=== PATIENT | female | born 1960 | race African-American/Black ===

== ENCOUNTER → 2018-10-16 | Outpatient (CLI) | payer OTHER ==
--- NOTE | 2018-10-16 14:28 | RAD ---
PA and lateral chest x-ray compared to similar study dated January 17, 2010 for chest wall pain status post mastectomy. FINDINGS: The lungs are clear. The cardiomediastinum is grossly unremarkable. Postsurgical changes of mastectomy are seen. There are flowing anterior osteophytes in the mid thoracic spine. No suspicious osteoblastic or osteolytic bone lesions are evident. IMPRESSION: 1. No acute cardiopulmonary abnormality. Electronically signed by: Santana Barraza MD (10/16/2018 2:25 PM) [id number]
== END | disposition home or self-care (01) ==
LOC: RAD 08:51 → EDBD 08:51
PROVIDERS: ATTEND Surgery
DX: M25.78 Osteophyte, vertebrae (principal); Z90.13 Acquired absence of bilateral breasts and nipples
CPT/HCPCS: 71046

== ENCOUNTER → 2018-11-14 | Outpatient (CLI) | payer MEDICARE, OTHER ==
--- NOTE | 2018-11-14 10:18 | RAD ---
CT of the chest without contrast 11/14/2018 INDICATION: Abnormal sternal mass. COMPARISON STUDY: Chest radiograph October 16, 2018 TECHNIQUE: Multidetector CT imaging of the chest was performed without contrast. FINDINGS: Predominantly sclerotic lesion is seen throughout the sternum and manubrium. The appearance is concerning for metastatic disease. Multifocal mild areas of surrounding abnormal soft tissue density are seen. A masslike nodule is seen anterior to the sternum just inferior to the marker (axial image 43. Findings are concerning for metastatic disease given patient history of breast cancer. Prior right mastectomy noted. Abnormal fullness is seen in the lateral left breast. Recommend correlation with recent mammography. If not available, mammography and possibly ultrasound evaluation is recommended. There are multiple small nodular opacities noted along the major fissure on the right. Largest measures 6 mm in diameter. Motion artifact somewhat limits evaluation. These are not seen on prior study. Heart size is normal. A small soft tissue density is seen likely extending from the manubrium into the anterior mediastinum. Calcified mediastinal lymph nodes are noted. No pathologically enlarged mediastinal adenopathy is detected on limited noncontrast evaluation. Granulomatous disease involving the spleen noted. No acute normalities of the upper abdomen are detected. IMPRESSION: 1. Likely sclerotic metastasis within the sternum and manubrium with surrounding soft tissue mass, also likely metastasis. Consider PET/CT to evaluate extent of disease, and biopsy as clinically indicated. 2. Asymmetric fullness in the lateral left breast. CT is limited for evaluation. Consider mammography if not recently performed. 3. Multiple small multiple small noncalcified nodules along the major fissure on the right measuring up to 6 mm in diameter. The appearance is nonspecific. Metastasis cannot be excluded given other findings. CT surveillance recommended. CT DOSING PQRS STATEMENT: One or more of the following individualized dose reduction techniques were utilized for this examination: 1. Automated exposure control 2. Adjustment of the mA and/or kV according to patient size 3. Use of iterative reconstruction technique Electronically signed by: Cruz Agustin MD (11/14/2018 10:13 AM) [id number]
== END | disposition home or self-care (01) ==
LOC: CT 07:57
PROVIDERS: ATTEND Surgery
DX: R59.0 Localized enlarged lymph nodes (principal); D71 Functional disorders of polymorphonuclear neutrophils; Z85.3 Personal history of malignant neoplasm of breast; Z90.11 Acquired absence of right breast and nipple
CPT/HCPCS: 36415; 71250

== ENCOUNTER → 2019-08-22 | Outpatient (CLI) | payer MEDICARE, MEDICAID ==
[2019-08-22 17:29] LABS: BASO # 0.1 x10^3/uL (0.0-0.2); BASO % 1 % (0-3); EOS % 0 % (0-3); HEMATOCRIT 30.3 % (36.0-47.0); LYMPH # 1.3 x10^3/uL (1.0-4.8); LYMPH % 17 % (24-48); MEAN CORPUSCULAR HEMOGLOBIN 27 pg (25-35); MEAN CORPUSCULAR HGB CONC 33 g/dL (31-37); MEAN CORPUSCULAR VOLUME 83 fL (79-100); MONO # 0.4 x10^3/uL (0.0-1.1); MONO % 5 % (0-9); NEUT # 5.7 x10^3uL (1.8-7.7); NEUT % 77 % (31-73); PLATELET COUNT 255 x10^3/uL (140-400); RED BLOOD COUNT 3.66 x10^6/uL (3.50-5.40); RED CELL DISTRIBUTION WIDTH 18.7 % (11.5-14.5); WHITE BLOOD COUNT 7.5 x10^3/uL (4.0-11.0)
[2019-08-22 17:43] LABS: ALBUMIN 3.4 g/dL (3.4-5.0); ALBUMIN/GLOBULIN RATIO 0.8 (1.0-1.7); CREATININE 1.3 mg/dL (0.6-1.0); GFR 50.9; POTASSIUM 4.3 mmol/L (3.5-5.1); TOTAL BILIRUBIN 0.6 mg/dL (0.2-1.0); TOTAL PROTEIN 7.8 g/dL (6.4-8.2)
== END | disposition home or self-care (01) ==
LOC: LAB 17:03
PROVIDERS: ATTEND Internal Medicine Hematology & Oncology
DX: Z00.6 Encounter for examination for normal comparison and control in clinical research program (principal); C50.911 Malignant neoplasm of unspecified site of right female breast; Z17.0 Estrogen receptor positive status [ER+]
CPT/HCPCS: 36415; 80053; 85025

== ENCOUNTER → 2019-11-10 | Outpatient (CLI) | payer MEDICARE, MEDICAID ==
[2019-11-10 07:53] LABS: BASO # 0.1 x10^3/uL (0.0-0.2); BASO % 1 % (0-3); EOS # 0.1 x10^3/uL (0.0-0.7); EOS % 1 % (0-3); HEMATOCRIT 27.5 % (36.0-47.0); LYMPH # 2.1 x10^3/uL (1.0-4.8); LYMPH % 47 % (24-48); MEAN CORPUSCULAR HEMOGLOBIN 28 pg (25-35); MEAN CORPUSCULAR HGB CONC 33 g/dL (31-37); MEAN CORPUSCULAR VOLUME 86 fL (79-100); MONO # 0.2 x10^3/uL (0.0-1.1); MONO % 5 % (0-9); NEUT % 46 % (31-73); PLATELET COUNT 327 x10^3/uL (140-400); RED BLOOD COUNT 3.21 x10^6/uL (3.50-5.40); RED CELL DISTRIBUTION WIDTH 17.9 % (11.5-14.5); WHITE BLOOD COUNT 4.5 x10^3/uL (4.0-11.0)
[2019-11-10 08:04] LABS: ALBUMIN 3.2 g/dL (3.4-5.0); ALBUMIN/GLOBULIN RATIO 0.7 (1.0-1.7); CALCIUM 7.5 mg/dL (8.5-10.1); CREATININE 1.1 mg/dL (0.6-1.0); GFR 61.5; POTASSIUM 4.5 mmol/L (3.5-5.1); TOTAL BILIRUBIN 0.4 mg/dL (0.2-1.0); TOTAL PROTEIN 7.6 g/dL (6.4-8.2)
== END | disposition home or self-care (01) ==
LOC: LAB 07:34
PROVIDERS: ATTEND Internal Medicine Hematology & Oncology
DX: C50.911 Malignant neoplasm of unspecified site of right female breast (principal); Z17.0 Estrogen receptor positive status [ER+]
CPT/HCPCS: 36415; 80053; 85025

== ENCOUNTER → 2019-11-24 | Outpatient (CLI) | payer MEDICARE, MEDICAID ==
[2019-11-24 08:16] LABS: ALBUMIN 2.9 g/dL (3.4-5.0); ALBUMIN/GLOBULIN RATIO 0.6 (1.0-1.7); CALCIUM 8.5 mg/dL (8.5-10.1); GFR 68.7; POTASSIUM 4.5 mmol/L (3.5-5.1); TOTAL BILIRUBIN 0.3 mg/dL (0.2-1.0); TOTAL PROTEIN 7.5 g/dL (6.4-8.2)
[2019-11-24 08:18] LABS: BASO # 0.1 x10^3/uL (0.0-0.2); BASO % 1 % (0-3); EOS # 0.1 x10^3/uL (0.0-0.7); EOS % 1 % (0-3); HEMOGLOBIN 8.7 g/dL (12.0-15.5); LYMPH # 2.2 x10^3/uL (1.0-4.8); LYMPH % 34 % (24-48); MEAN CORPUSCULAR HEMOGLOBIN 28 pg (25-35); MEAN CORPUSCULAR HGB CONC 32 g/dL (31-37); MEAN CORPUSCULAR VOLUME 87 fL (79-100); MONO % 15 % (0-9); NEUT # 3.2 x10^3uL (1.8-7.7); NEUT % 49 % (31-73); PLATELET COUNT 397 x10^3/uL (140-400); RED CELL DISTRIBUTION WIDTH 18.1 % (11.5-14.5); WHITE BLOOD COUNT 6.4 x10^3/uL (4.0-11.0)
== END | disposition home or self-care (01) ==
LOC: LAB 07:40
PROVIDERS: ATTEND Internal Medicine Hematology & Oncology
DX: C50.911 Malignant neoplasm of unspecified site of right female breast (principal); Z17.0 Estrogen receptor positive status [ER+]
CPT/HCPCS: 36415; 80053; 85025

== ENCOUNTER → 2019-12-01 | Outpatient (CLI) | payer MEDICARE, MEDICAID ==
[2019-12-01 07:53] LABS: BASO # 0.1 x10^3/uL (0.0-0.2); BASO % 1 % (0-3); EOS # 0.1 x10^3/uL (0.0-0.7); EOS % 1 % (0-3); HEMATOCRIT 25.4 % (36.0-47.0); HEMOGLOBIN 8.3 g/dL (12.0-15.5); LYMPH # 2.1 x10^3/uL (1.0-4.8); LYMPH % 35 % (24-48); MEAN CORPUSCULAR HEMOGLOBIN 28 pg (25-35); MEAN CORPUSCULAR HGB CONC 33 g/dL (31-37); MEAN CORPUSCULAR VOLUME 85 fL (79-100); MONO # 0.3 x10^3/uL (0.0-1.1); MONO % 6 % (0-9); NEUT # 3.4 x10^3uL (1.8-7.7); NEUT % 57 % (31-73); PLATELET COUNT 359 x10^3/uL (140-400); RED BLOOD COUNT 2.99 x10^6/uL (3.50-5.40); RED CELL DISTRIBUTION WIDTH 17.7 % (11.5-14.5)
[2019-12-01 08:03] LABS: ALBUMIN 2.9 g/dL (3.4-5.0); ALBUMIN/GLOBULIN RATIO 0.6 (1.0-1.7); CALCIUM 8.2 mg/dL (8.5-10.1); CREATININE 0.8 mg/dL (0.6-1.0); GFR 88.8; TOTAL BILIRUBIN 0.3 mg/dL (0.2-1.0); TOTAL PROTEIN 7.5 g/dL (6.4-8.2)
== END | disposition home or self-care (01) ==
LOC: LAB 07:29
PROVIDERS: ATTEND Internal Medicine Hematology & Oncology
DX: C79.51 Secondary malignant neoplasm of bone (principal); C50.911 Malignant neoplasm of unspecified site of right female breast; Z17.0 Estrogen receptor positive status [ER+]
CPT/HCPCS: 36415; 80053; 85025

== ENCOUNTER → 2019-12-22 | Outpatient (CLI) | payer MEDICARE, MEDICAID ==
[2019-12-22 08:11] LABS: ALBUMIN 2.8 g/dL (3.4-5.0); ALBUMIN/GLOBULIN RATIO 0.7 (1.0-1.7); BASO % 1 % (0-3); CALCIUM 7.9 mg/dL (8.5-10.1); EOS # 0.1 x10^3/uL (0.0-0.7); EOS % 1 % (0-3); GFR 68.7; HEMATOCRIT 25.8 % (36.0-47.0); HEMOGLOBIN 8.2 g/dL (12.0-15.5); LYMPH # 1.9 x10^3/uL (1.0-4.8); LYMPH % 35 % (24-48); MEAN CORPUSCULAR HEMOGLOBIN 27 pg (25-35); MEAN CORPUSCULAR HGB CONC 32 g/dL (31-37); MEAN CORPUSCULAR VOLUME 87 fL (79-100); MONO # 0.9 x10^3/uL (0.0-1.1); MONO % 17 % (0-9); NEUT # 2.5 x10^3uL (1.8-7.7); NEUT % 46 % (31-73); PLATELET COUNT 348 x10^3/uL (140-400); POTASSIUM 4.5 mmol/L (3.5-5.1); RED BLOOD COUNT 2.99 x10^6/uL (3.50-5.40); RED CELL DISTRIBUTION WIDTH 18.5 % (11.5-14.5); TOTAL BILIRUBIN 0.3 mg/dL (0.2-1.0); TOTAL PROTEIN 7.1 g/dL (6.4-8.2); WHITE BLOOD COUNT 5.4 x10^3/uL (4.0-11.0)
== END | disposition home or self-care (01) ==
LOC: LAB 07:41
PROVIDERS: ATTEND Internal Medicine Hematology & Oncology
DX: C79.51 Secondary malignant neoplasm of bone (principal); C50.911 Malignant neoplasm of unspecified site of right female breast; Z17.0 Estrogen receptor positive status [ER+]
CPT/HCPCS: 36415; 80053; 85025

== ENCOUNTER → 2019-12-24 | Outpatient (CLI) | payer MEDICARE, MEDICAID ==
[~2019-12-24] MED LIST: IOHEXOL 350 MG/ML 100 ML VIAL. IV ONE
--- NOTE | 2019-12-24 10:13 | RAD ---
Bilateral lower extremity venous doppler ultrasound History: Bilateral edema and swelling, history of breast cancer and chemotherapy Findings: Multiple grayscale, color, and duplex spectral analysis sonographic images were acquired of the bilateral lower extremity veins to evaluate for the presence of DVT. There is normal phasicity. Normal compression, color-flow, and augmentation is demonstrated from the bilateral common femoral to the popliteal veins. There is normal color flow of the proximal greater saphenous and profunda femoris veins. There is normal color flow of segments of the calf veins. There is edema of the soft tissues in the calves. Impression: 1. There is no evidence of deep venous thrombosis from the bilateral common femoral to the popliteal veins. Electronically signed by: Renny Post MD (12/24/2019 10:10 AM) [id number]
--- NOTE | 2019-12-24 11:18 | RAD ---
EXAM: CT Chest angiogram with and without IV contrast INDICATION: Malignant neoplasm of the right breast TECHNIQUE: Multi-detector row CT images were acquired from the thoracic inlet through the upper abdomen with and without the use of IV contrast. Post contrast images were acquired in the pulmonary angiographic phase of enhancement. Sagittal and coronal images were acquired from the transaxial data. All CT scans performed at this facility utilize dose optimization techniques as appropriate to the exam, including the following: Automated exposure control and adjustment of the mA and/or KV according to patient size (this includes techniques or standardized protocols for targeted exams where dose is indication/reason for exam). Maximum intensity projection reformats were reviewed. IV CONTRAST: Administered COMPARISON: Noncontrast chest CT of 11/14/2018. FINDINGS: CARDIOVASCULAR: Precontrast images show no evidence of an intramural hematoma in the thoracic aorta. Left jugular approach chest port with tip in the distal SVC passes through a stenotic innominate vein with intraluminal linear filling defects compatible with synechiae or webs. There is retrograde flow of contrast through various smaller adjoining veins, including the left superior intercostal vein. Opacification of the pulmonary arteries is however satisfactory and shows no evidence of a pulmonary embolus. The main pulmonary artery/pulmonary trunk is slightly larger than the ascending thoracic aorta at 3.2 cm, compared with 2.7 cm. Bovine arch anatomy is present. Widely patent thoracic aorta and major branch vessels with no aneurysm. Normal heart size. Scattered coronary calcifications. No pericardial effusion. MEDIASTINUM & DEBBIE: Calcified right lower paratracheal lymph node. No mediastinal or hilar adenopathy otherwise identified. The thyroid, central airway and esophagus are unremarkable. LUNGS: Lungs show rounded atelectasis in the right lung affecting the lower lobe to the greatest extent. In addition, there is diffuse interstitial prominence with slight thickening of the interlobular septa best appreciated in the left lung. No dominant mass.. PLEURAL SPACE: No pneumothorax. A moderate-sized right pleural effusion is present OSSEOUS & SOFT TISSUE: Diffuse osteoblastic lesions are present in the sternum, ribs, spine and bilateral visualized shoulder girdles including the humeral heads. Right mastectomy. No axillary adenopathy. ABDOMEN: Visualized upper abdomen shows splenic calcifications. . 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 Diffuse interlobular thickening in the lungs, best appreciated in the left lung could represent pulmonary vascular congestion but lymphangitic carcinomatosis can appear similar. Electronically signed by: Michelle Abraham MD (12/24/2019 11:15 AM) [facility]
== END | disposition home or self-care (01) ==
LOC: CT 08:21
PROVIDERS: ATTEND Internal Medicine Hematology & Oncology
DX: C79.51 Secondary malignant neoplasm of bone (principal); I25.10 Atherosclerotic heart disease of native coronary artery without angina pectoris; C50.911 Malignant neoplasm of unspecified site of right female breast; J92.9 Pleural plaque without asbestos; J90 Pleural effusion, not elsewhere classified; M89.9 Disorder of bone, unspecified; J98.11 Atelectasis; Q25.49 Other congenital malformations of aorta; H21.502 Unspecified adhesions of iris, left eye; R60.0 Localized edema
CPT/HCPCS: 71275; 93970; Q9967

== ENCOUNTER → 2019-12-29 | Outpatient (CLI) | payer MEDICARE, MEDICAID ==
[2019-12-29 08:17] LABS: BASO # 0.1 x10^3/uL (0.0-0.2); BASO % 1 % (0-3); EOS # 0.1 x10^3/uL (0.0-0.7); EOS % 2 % (0-3); HEMATOCRIT 23.9 % (36.0-47.0); HEMOGLOBIN 7.7 g/dL (12.0-15.5); LYMPH # 1.8 x10^3/uL (1.0-4.8); LYMPH % 31 % (24-48); MEAN CORPUSCULAR HEMOGLOBIN 27 pg (25-35); MEAN CORPUSCULAR HGB CONC 32 g/dL (31-37); MEAN CORPUSCULAR VOLUME 84 fL (79-100); MONO # 0.3 x10^3/uL (0.0-1.1); MONO % 5 % (0-9); NEUT # 3.6 x10^3uL (1.8-7.7); NEUT % 62 % (31-73); PLATELET COUNT 295 x10^3/uL (140-400); RED BLOOD COUNT 2.84 x10^6/uL (3.50-5.40); RED CELL DISTRIBUTION WIDTH 18.1 % (11.5-14.5); WHITE BLOOD COUNT 5.8 x10^3/uL (4.0-11.0)
[2019-12-29 08:27] LABS: ALBUMIN 2.9 g/dL (3.4-5.0); ALBUMIN/GLOBULIN RATIO 0.7 (1.0-1.7); CALCIUM 8.5 mg/dL (8.5-10.1); CREATININE 1.2 mg/dL (0.6-1.0); GFR 55.6; TOTAL BILIRUBIN 0.4 mg/dL (0.2-1.0); TOTAL PROTEIN 7.2 g/dL (6.4-8.2)
== END | disposition home or self-care (01) ==
LOC: LAB 07:36
PROVIDERS: ATTEND Internal Medicine Hematology & Oncology
DX: C50.911 Malignant neoplasm of unspecified site of right female breast (principal); Z17.0 Estrogen receptor positive status [ER+]
CPT/HCPCS: 36415; 80053; 85025

== ENCOUNTER → 2020-01-05 | Outpatient (CLI) | payer MEDICARE, MEDICAID ==
[2020-01-05 08:07] LABS: ALBUMIN 2.9 g/dL (3.4-5.0); ALBUMIN/GLOBULIN RATIO 0.6 (1.0-1.7); CALCIUM 8.6 mg/dL (8.5-10.1); CREATININE 1.1 mg/dL (0.6-1.0); GFR 61.5; POTASSIUM 4.6 mmol/L (3.5-5.1); TOTAL BILIRUBIN 0.3 mg/dL (0.2-1.0); TOTAL PROTEIN 7.4 g/dL (6.4-8.2)
[2020-01-05 08:10] LABS: BASO % 1 % (0-3); EOS # 0.1 x10^3/uL (0.0-0.7); EOS % 2 % (0-3); HEMATOCRIT 22.1 % (36.0-47.0); HEMOGLOBIN 7.3 g/dL (12.0-15.5); LYMPH # 1.5 x10^3/uL (1.0-4.8); LYMPH % 40 % (24-48); MEAN CORPUSCULAR HEMOGLOBIN 28 pg (25-35); MEAN CORPUSCULAR HGB CONC 33 g/dL (31-37); MEAN CORPUSCULAR VOLUME 84 fL (79-100); MONO # 0.1 x10^3/uL (0.0-1.1); MONO % 3 % (0-9); NEUT # 2.1 x10^3uL (1.8-7.7); NEUT % 55 % (31-73); PLATELET COUNT 350 x10^3/uL (140-400); RED BLOOD COUNT 2.64 x10^6/uL (3.50-5.40); RED CELL DISTRIBUTION WIDTH 18.8 % (11.5-14.5); WHITE BLOOD COUNT 3.9 x10^3/uL (4.0-11.0)
== END | disposition home or self-care (01) ==
LOC: LAB 07:35
PROVIDERS: ATTEND Internal Medicine Hematology & Oncology
DX: C50.911 Malignant neoplasm of unspecified site of right female breast (principal); Z17.0 Estrogen receptor positive status [ER+]
CPT/HCPCS: 36415; 80053; 85025

== ENCOUNTER → 2020-03-16 | Outpatient (CLI) | payer MEDICARE, MEDICAID ==
[~2020-03-16] MED LIST changes: +ALPR1TAB6 PO; +DULO60CA98 PO; -IOHEXOL 350 MG/ML 100 ML VIAL. IV ONE; +METH10TA2 PO; +PALB125C PO
[2020-03-16 08:27] LABS: BASO # 0.1 x10^3/uL (0.0-0.2); BASO % 1 % (0-3); EOS # 0.1 x10^3/uL (0.0-0.7); EOS % 1 % (0-3); HEMATOCRIT 30.3 % (36.0-47.0); HEMOGLOBIN 9.6 g/dL (12.0-15.5); LYMPH # 2.5 x10^3/uL (1.0-4.8); LYMPH % 22 % (24-48); MEAN CORPUSCULAR HEMOGLOBIN 26 pg (25-35); MEAN CORPUSCULAR HGB CONC 32 g/dL (31-37); MEAN CORPUSCULAR VOLUME 82 fL (79-100); MONO # 0.9 x10^3/uL (0.0-1.1); MONO % 8 % (0-9); NEUT # 7.7 x10^3uL (1.8-7.7); NEUT % 68 % (31-73); PLATELET COUNT 360 x10^3/uL (140-400); RED CELL DISTRIBUTION WIDTH 20.5 % (11.5-14.5); WHITE BLOOD COUNT 11.4 x10^3/uL (4.0-11.0)
[2020-03-16 08:49] LABS: CALCIUM 9.6 mg/dL (8.5-10.1); CREATININE 1.2 mg/dL (0.6-1.0); DIRECT BILIRUBIN 0.1 mg/dL (0.0-0.2); GFR 55.6; TOTAL BILIRUBIN 0.3 mg/dL (0.2-1.0); TOTAL PROTEIN 8.5 g/dL (6.4-8.2)
[2020-03-16 09:26] LABS: PLT ESTIMATE ADEQUATE (ADEQUATE)
[2020-03-16 09:27] LABS: ANISOCYTOSIS PRESENT
[2020-03-16 09:28] LABS: POLYCHROMASIA PRESENT; TARGET CELLS PRESENT; TEAR DROP CELLS PRESENT
[2020-03-16 09:31] LABS: OVALOCYTES FEW
[2020-03-16 09:36] LABS: SCHISTOCYTES FEW
== END | disposition home or self-care (01) ==
LOC: LAB 08:07
PROVIDERS: ATTEND Physician Assistant
DX: C50.211 Malignant neoplasm of upper-inner quadrant of right female breast (principal)
CPT/HCPCS: 36415; 80048; 80076; 83615; 85025

== ENCOUNTER 2020-03-17 16:39 | Observation (INO) | payer MEDICARE, MEDICAID ==
[~2020-03-17] VITALS: Ht 154.9 cm; Wt 55.6 kg
[2020-03-17] MEDS ORDERED: IOHEXOL 350 MG/ML 100 ML VIAL. IV ONE (17:15)
--- NOTE | 2020-03-17 17:43 | PHYS DOC ---
Past History Past Medical History: Cancer, Diabetes (NAEEM PIERCE DO) Past Surgical History: No Surgical History (NAEEM PIERCE DO) Alcohol Use: None (NAEEM PIERCE DO) General Adult EDM: Chief Complaint: SHORTNESS OF BREATH HPI: HPI: 59-year-old female past medical history significant for diabetes, blindness and breast cancer metastatic to the lungs on chemo (8 years with remission and recurrence), presents to the ED with cough with complaints of progressive worsening shortness of breath for the past 2 days. Patient states her last PET scan was approximately 3 months ago-this was when she was restarted on her chemo. Not on any anticoagulants. No history of DVT or PE. 5-year history of tobacco dependence but has never been diagnosed with any underlying lung disease. Lives at home-no known/covid exposure. Reports no hospitalizations in the past 3 to 6 months. I suspect patient is a very poor historian. Is on no home oxygen or CPAP at night. ROS: Denies associated fever, chills, chest pain, exertional or positional dyspnea (states it is constant), cough, dyspnea, nausea, vomiting, back pain, unilateral leg swelling, rash, headache, neck stiffness, neurologic deficits. (NAEEM PIERCE DO) Review of Systems: Review of Systems: Constitutional: Denies fever or chills Eyes: Denies change in visual acuity HENT: Denies nasal congestion or sore throat Respiratory: Denies cough or shortness of breath Cardiovascular: Denies chest pain or edema GI: Denies abdominal pain, nausea, vomiting, bloody stools or diarrhea : Denies dysuria Musculoskeletal: Denies back pain or joint pain Integument: Denies rash Neurologic: Denies headache, focal weakness or sensory changes Endocrine: Denies polyuria or polydipsia Lymphatic: Denies swollen glands Psychiatric: Denies depression or anxiety (NAEEM PIERCE DO) Heart Score: Risk Factors: Risk Factors: DM, Current or recent (<one month) smoker, HTN, HLP, family history of CAD, obesity. Risk Scores: Score 0 - 3: 2.5% MACE over next 6 weeks - Discharge Home Score 4 - 6: 20.3% MACE over next 6 weeks - Admit for Clinical Observation Score 7 - 10: 72.7% MACE over next 6 weeks - Early Invasive Strategies (NAEEM PIERCE DO) Current Medications: Current Meds: Current Medications Medications (Trade) Dose Ordered Sig/Fay Start Time Stop Time Status Last Admin Dose Admin Iohexol (Omnipaque 350 Mg/ml) 100 ml 1X ONCE 03/17/20 17:15 03/17/20 17:16 DC 03/17/20 17:38 100 ML (NAEEM PIERCE DO) Allergies: Allergies: Allergies Coded Allergies Type Severity Reaction Last Updated Verified No Known Drug Allergies 11/14/18 No (NAEEM PIERCE DO) Physical Exam: PE: Constitutional: Well developed, well nourished, no acute distress, thin/cachetic appearing HENT: Normocephalic, atraumatic, bilateral external ears normal, oropharynx moist, no oral exudates, nose normal. [] Eyes: EOMI, conjunctiva normal, no discharge. [] Neck: Normal range of motion, no tenderness, supple, no stridor. [] Cardiovascular:Heart rate regular rhythm, no murmur [] Lungs & Thorax: Bilateral breath sounds clear to auscultation [] 100% on 1.5 NC tenderness, no masses, no pulsatile masses. [] Skin: Warm, dry, no erythema, no rash. [] Back: No tenderness, no CVA tenderness. [] Extremities: No tenderness, no cyanosis, no clubbing, ROM intact, no edema. [] Neurologic: Alert and oriented X 3, normal motor function, normal sensory function, no focal deficits noted. [] Psychologic: Affect normal, judgement normal, mood normal. [] (INOCENCIONAEEM DO) Current Patient Data: Vital Signs: Vital Signs Date Time Temp Pulse Resp B/P (MAP) Pulse Ox O2 Delivery O2 Flow Rate FiO2 03/17/20 17:31 97.8 122 20 103/54 (70) 91 Room Air (NAEEM PIERCE DO) EKG: EKG: [] (NAEEM PIERCE DO) EKG: Sinus rhythm, rate 97, leftward axis, no ST elevations or depressions. (SRIDEVI LESTER DO) Radiology/Procedures: Radiology/Procedures: Most recent PET scan results from 02/27/20 per emr review: There is significant decrease in intensity and number of sites of bony metastatic uptake. However, there are many more sclerotic metastatic lesions on CT images. Increased sclerotic appearance incidentally is evident at the proximal humeral and particular at the right humeral head increased bony sclerotic metastases is notable throughout the thoracic and lumbar spine on CT images. Notable increase in sacral and other pelvic bony sclerotic metastases. Notable increase in sclerotic metastases of the proximal femora. No substantial changes noted upon correlation with the previous CTA of the chest performed which was performed more recently. Previously seen uptake of radiotracer in the left hilum is no longer evident. Resolution of previously seen mass along the anterior aspect of the sternum and within the superior mediastinum with no significant uptake in these regions. Moderate size right pleural effusion with adjacent atelectasis is again seen without significant change since CTA of the chest 12/24/2019. Impressions: Pending CTA chest - will order trop and ekg. Dispose pending these results. Pt has been signed out to Dr. Lester due to shift change. ([facility],NAEEM Payne DO) Impressions: Exam: CT of chest with contrast INDICATION: Short of air with metastatic lung cancer TECHNIQUE: Sequential axial images through the chest obtained following the administration of 75 mL of Isovue-370 IV contrast. Sagittal and coronal reformatted images were reconstructed from the axial data and reviewed. 3-D reformatted images were reconstructed from the axial data and reviewed. Comparisons: 12/24/2019 FINDINGS: Visual is portions of the thyroid are unremarkable. No enlarged mediastinal lymph nodes are identified. Heart size is normal. Moderate coronary artery calcifications. Thoracic aorta has a normal course and caliber. Pulmonary artery is not enlarged. No pulmonary embolus identified within the main, lobar or segmental pulmonary arteries. Airways are patent. No consolidation or pneumothorax. Linear bandlike opacities noted in the right lung likely representing atelectasis. Moderate-sized right pleural effusion with adjacent atelectasis. Visualized upper abdomen is unremarkable. Redemonstration of numerous osteoblastic metastatic lesions noted throughout the axial and appendicular skeleton not significantly changed when compared to the prior study. IMPRESSION: 1. No pulmonary embolus identified within the main, lobar or segmental pulmonary arteries. 2. Persistent moderate-sized right pleural effusion with adjacent atelectasis. 3. Redemonstration of innumerable osteoblastic metastatic lesions throughout the axial and appendicular skeleton not significantly changed from the prior study. Exposure: One or more of the following in the visualized dose reduction techniques were utilized for this examination: 1. Automated exposure control 2. Adjustment of the MA and/or KV according to patient size 3. Use of iterative of reconstructive technique Electronically signed by: Shira Carrillo MD (03/17/2020 6:05 PM) [id number] DICTATED AND SIGNED BY: SHIRA CARRILLO MD DATE: 03/17/20 1211 CC: BIRD ERWIN; NAEEM PIERCE DO ~ (SRIDEVI LESTER DO) Course & Med Decision Making: Course & Med Decision Making Pertinent Labs and Imaging studies reviewed. (See chart for details) [] (NAEEM PIERCE DO) Course & Med Decision Making The patient's labs are similar to her previous. Her hemoglobin is actually a bit better than her usual labs. See labs for more details. Her CTA does not show pulmonary embolus. There are significant findings, but these are similar to previous. See official read for more details. The patient's oxygen saturation has been 99 to 100% on room air throughout her visit. I asked her how she is feeling and she says she feels pretty good. When asked her if she would like to go home, she would like to return home. She is stable for discharge at this time. (SRIDEVI LESTER DO) Dragon Disclaimer: Dragon Disclaimer: This electronic medical record was generated, in whole or in part, using a voice recognition dictation system. (NAEEM PIERCE DO) Departure Departure: Impression: Primary Impression: Metastatic cancer to bone Additional Impressions: Metastatic cancer to lung Qualified Codes: C78.01 - Secondary malignant neoplasm of right lung Pleural effusion Disposition: HOME/RESIDENCE PRIOR TO ADM Condition: STABLE Referrals: PCP,BIRD (PCP) Patient Instructions: Shortness of Breath, [id number] NAEEM PIERCE DO March 17, 2020 17:43 SRIDEVI LESTER DO March 17, 2020 20:48
--- NOTE | 2020-03-17 18:08 | RAD ---
Exam: CT of chest with contrast INDICATION: Short of air with metastatic lung cancer TECHNIQUE: Sequential axial images through the chest obtained following the administration of 75 mL of Isovue-370 IV contrast. Sagittal and coronal reformatted images were reconstructed from the axial data and reviewed. 3-D reformatted images were reconstructed from the axial data and reviewed. Comparisons: 12/24/2019 FINDINGS: Visual is portions of the thyroid are unremarkable. No enlarged mediastinal lymph nodes are identified. Heart size is normal. Moderate coronary artery calcifications. Thoracic aorta has a normal course and caliber. Pulmonary artery is not enlarged. No pulmonary embolus identified within the main, lobar or segmental pulmonary arteries. Airways are patent. No consolidation or pneumothorax. Linear bandlike opacities noted in the right lung likely representing atelectasis. Moderate-sized right pleural effusion with adjacent atelectasis. Visualized upper abdomen is unremarkable. Redemonstration of numerous osteoblastic metastatic lesions noted throughout the axial and appendicular skeleton not significantly changed when compared to the prior study. IMPRESSION: 1. No pulmonary embolus identified within the main, lobar or segmental pulmonary arteries. 2. Persistent moderate-sized right pleural effusion with adjacent atelectasis. 3. Redemonstration of innumerable osteoblastic metastatic lesions throughout the axial and appendicular skeleton not significantly changed from the prior study. Exposure: One or more of the following in the visualized dose reduction techniques were utilized for this examination: 1. Automated exposure control 2. Adjustment of the MA and/or KV according to patient size 3. Use of iterative of reconstructive technique Electronically signed by: Shira Rodriguez MD (03/17/2020 6:05 PM) [id number]
[2020-03-17] MEDS ORDERED: HYDROcodone/APAP 5/325MG 1 TAB TABLET PO ONE (20:00)
[2020-03-17 20:10] LABS: BASO # 0.1 x10^3/uL (0.0-0.2); BASO % 1 % (0-3); EOS # 0.1 x10^3/uL (0.0-0.7); EOS % 1 % (0-3); HEMATOCRIT 28.9 % (36.0-47.0); HEMOGLOBIN 9.1 g/dL (12.0-15.5); LYMPH # 1.3 x10^3/uL (1.0-4.8); LYMPH % 13 % (24-48); MEAN CORPUSCULAR HEMOGLOBIN 26 pg (25-35); MEAN CORPUSCULAR HGB CONC 32 g/dL (31-37); MEAN CORPUSCULAR VOLUME 82 fL (79-100); MONO # 0.8 x10^3/uL (0.0-1.1); MONO % 8 % (0-9); NEUT # 7.7 x10^3uL (1.8-7.7); NEUT % 78 % (31-73); PLATELET COUNT 313 x10^3/uL (140-400); RED BLOOD COUNT 3.53 x10^6/uL (3.50-5.40); RED CELL DISTRIBUTION WIDTH 21.3 % (11.5-14.5); WHITE BLOOD COUNT 9.9 x10^3/uL (4.0-11.0)
[2020-03-17 20:19] LABS: CALCIUM 8.5 mg/dL (8.5-10.1); CREATININE 1.2 mg/dL (0.6-1.0); GFR 55.6
[2020-03-17 20:22] LABS: ALBUMIN 2.6 g/dL (3.4-5.0); ALBUMIN/GLOBULIN RATIO 0.6 (1.0-1.7); TOTAL BILIRUBIN 0.2 mg/dL (0.2-1.0)
[2020-03-17 20:30] LABS: PLT ESTIMATE ADEQUATE (ADEQUATE)
[2020-03-17 20:35] LABS: ANISOCYTOSIS MOD
[2020-03-17 20:36] LABS: MICROCYTOSIS MOD
[2020-03-17] MEDS ORDERED: HEPARIN PF 500 UNIT/5 ML DISP.SYRIN. ONE (20:59)
[2020-03-17] MEDS ORDERED: HEPARIN PF 500 UNIT/5 ML DISP.SYRIN. IVP ONE (23:00)
[2020-03-17] MEDS ORDERED: ONDANSETRON PF 4 MG/2 ML VIAL. IVP PRN (23:00)
[2020-03-17] MEDS ORDERED: DULO60CA98 PO (23:53)
[2020-03-17] MEDS ORDERED: ALPR1TAB6 PO (23:53)
[2020-03-17] MEDS ORDERED: PALB125C PO (23:53)
[2020-03-18 00:11] VITALS: BP 147/84
[2020-03-18 06:19] VITALS: BP 118/73
--- NOTE | 2020-03-18 06:41 | EKG ---
[address] [address] Test Date: 2020-03-17 Test Time: 18:19:24 Pat Name: FANTA PHIPPS Department: Room: 109 A Gender: F Marketing Production Manager: : 1960 Requested By: NAEEM PIERCE Order Number: [id number] Reading MD: Des Hilton Measurements Intervals [place] Rate: 97 P: 43 NE: 120 QRS: -37 QRSD: 74 T: 31 QT: 344 QTc: 441 Interpretive Statements SINUS RHYTHM ABNORMAL LEFT AXIS DEVIATION LEFT ANTERIOR FASCICULAR BLOCK ABNORMAL ECG RI6.02 No previous ECG available for comparison Electronically Signed On 03-18-2020 8:01:20 CDT by Des Hilton
[2020-03-18] MEDS ORDERED: METH10TA2 PO (09:21)
[2020-03-18] MEDS ORDERED: METHADONE 5 MG TABLET. PO SCH (10:00)
[2020-03-18 10:28] VITALS: BP 108/66
--- NOTE | 2020-03-18 13:44 | SSS ---
ADMIT DATE: 03/18/2020 HISTORY OF PRESENT ILLNESS: The patient is a 59-year-old female patient who came to the Emergency Room with complaint of shortness of breath that has been going on for the past 2 days. She stated that her last PET scan was approximately 3 months ago. This was when she was restarted on her chemotherapy. She is not on any anticoagulant. She has no history of DVT or PE. She has 5-year history of tobacco dependence, but has never been diagnosed with any underlying lung disease. She lives at home with her daughter. No known COVID exposure. She has reported no hospitalization over the past 3-6 months. She is not on any home oxygen or CPAP. She was extensively evaluated in the Emergency Room including lab work and she has normochromic normocytic anemia with normal white cell count and platelets. Her chemistry showed that she is slightly dehydrated with a BUN of 37, creatinine 1.2. Because of her cancer, she underwent CT angio of the chest, which showed no pulmonary embolus identified within the main lobar or segmental pulmonary arteries. She has resistant moderate sized right pleural effusion with adjacent atelectasis and redemonstration of innumerable osteoblastic metastatic lesions throughout the axial and appendicular skeleton not significantly changed from prior study. The plan initially was for her to go home. Unfortunately, there was some miscommunication and the wrong telephone number, so a decision was made to admit her for overnight observation. PAST MEDICAL HISTORY: Significant for breast cancer with metastasis to the lung and bones. She is diabetic. She has type 2 diabetes and she is blind. PAST SURGICAL HISTORY: None. ALLERGIES: No known drug allergies. MEDICATIONS: She is currently on Ibrance 125 mg daily, methadone 10 mg 3 times a day, duloxetine 60 mg twice a day and alprazolam 1 mg twice a day. FAMILY HISTORY: Apparently noncontributory. SOCIAL HISTORY: She lives with her daughter. She is an ex-smoker. She does not smoke, drink alcohol or use any recreational drugs. REVIEW OF SYSTEMS: As per history of present illness. PHYSICAL EXAMINATION: GENERAL: On arrival, the patient looked pale, but no jaundice, cyanosis or thyromegaly. No jugular venous distention. No limb edema. VITAL SIGNS: Her heart rate was 122, blood pressure was 103/54, temperature was 97.8, respiratory rate 20, and oxygen saturation was 91%. HEAD, EYES, EARS, NOSE AND THROAT: Showed normocephalic, atraumatic. NECK: Supple. HEART: Showed normal first and second heart sounds. No gallop or murmur. She does have dull percussion note. Absent breath sounds on the right side posteriorly. ABDOMEN: Distended, soft, nontender. NEUROLOGIC: She is blind, but otherwise all her cranial nerves are intact. EXTREMITIES: She moves extremities without difficulty. She ambulates with a cane with assistance. LABORATORY DATA: On admission showed a white cell count 9900, hemoglobin 9.1, hematocrit 29, MCV 82 and platelet count of 313,000. Her serum sodium was 142, potassium 5, chloride 102, bicarbonate 36, anion gap of 4, BUN 37, creatinine was 1.2, estimated GFR was 55 mL per minute. Her glucose 155, calcium was 8.5. Total bilirubin, AST, ALT were normal. Alkaline phosphatase 121. Total protein 7, albumin 2.6. DISCHARGE MEDICATIONS: The patient will be discharged home to continue on her Ibrance 125 mg daily, methadone 10 mg 3 times a day, duloxetine 60 mg twice a day, and alprazolam 1 mg twice a day. FINAL DISCHARGE DIAGNOSES: 1. Shortness of breath, resolved. The patient was extensively investigated. She has stable right side pleural effusion. Has no evidence of any pneumonia, pneumothorax. 2. Breast cancer with metastasis to the lung and bone. 3. Type 2 diabetes mellitus. 4. Blindness. JHON CARMICHAEL MD DR: HOMERO/manuel JOB#: [id number] / [id number]
== END 2020-03-18 14:05 | disposition home or self-care (01) ==
LOC: ER 16:39 → 1 SOUTH 22:40
PROVIDERS: ADMIT Internal Medicine; ATTEND Internal Medicine
DX: C50.919 Malignant neoplasm of unspecified site of unspecified female breast (principal); C78.01 Secondary malignant neoplasm of right lung; C79.51 Secondary malignant neoplasm of bone; D64.9 Anemia, unspecified; E11.9 Type 2 diabetes mellitus without complications; E86.0 Dehydration; H54.7 Unspecified visual loss; J98.11 Atelectasis; J90 Pleural effusion, not elsewhere classified; Z87.891 Personal history of nicotine dependence
CPT/HCPCS: 36415; 71275; 80053; 84484; 85025; 93005; 96374; 99285; G0378; Q9967; G0379

== ENCOUNTER → 2020-03-30 | Outpatient (CLI) | payer MEDICARE, MEDICAID ==
[2020-03-18 10:28] VITALS: BP 108/66
[2020-03-30 08:17] LABS: BASO % 1 % (0-3); EOS # 0.1 x10^3/uL (0.0-0.7); EOS % 2 % (0-3); HEMATOCRIT 28.9 % (36.0-47.0); HEMOGLOBIN 9.2 g/dL (12.0-15.5); LYMPH # 1.7 x10^3/uL (1.0-4.8); LYMPH % 26 % (24-48); MEAN CORPUSCULAR HEMOGLOBIN 26 pg (25-35); MEAN CORPUSCULAR HGB CONC 32 g/dL (31-37); MEAN CORPUSCULAR VOLUME 81 fL (79-100); MONO # 0.2 x10^3/uL (0.0-1.1); MONO % 3 % (0-9); NEUT # 4.6 x10^3uL (1.8-7.7); NEUT % 69 % (31-73); PLATELET COUNT 401 x10^3/uL (140-400); RED BLOOD COUNT 3.57 x10^6/uL (3.50-5.40); RED CELL DISTRIBUTION WIDTH 19.6 % (11.5-14.5); WHITE BLOOD COUNT 6.7 x10^3/uL (4.0-11.0)
[2020-03-30 08:33] LABS: ALBUMIN 2.8 g/dL (3.4-5.0); CALCIUM 9.2 mg/dL (8.5-10.1); CREATININE 1.7 mg/dL (0.6-1.0); DIRECT BILIRUBIN 0.1 mg/dL (0.0-0.2); GFR 37.2; POTASSIUM 4.2 mmol/L (3.5-5.1); TOTAL BILIRUBIN 0.4 mg/dL (0.2-1.0); TOTAL PROTEIN 8.6 g/dL (6.4-8.2)
== END | disposition home or self-care (01) ==
LOC: LAB 07:49
PROVIDERS: ATTEND Physician Assistant
DX: C79.51 Secondary malignant neoplasm of bone (principal); C50.211 Malignant neoplasm of upper-inner quadrant of right female breast; E11.9 Type 2 diabetes mellitus without complications; Z92.21 Personal history of antineoplastic chemotherapy; Z79.899 Other long term (current) drug therapy
CPT/HCPCS: 36415; 80048; 80076; 83615; 85025

== ENCOUNTER → 2020-04-13 | Outpatient (CLI) | payer MEDICARE, MEDICAID ==
[2020-03-18 10:28] VITALS: BP 108/66
[2020-04-13 08:05] LABS: BASO % 1 % (0-3); EOS % 1 % (0-3); HEMATOCRIT 27.4 % (36.0-47.0); HEMOGLOBIN 8.7 g/dL (12.0-15.5); LYMPH # 1.5 x10^3/uL (1.0-4.8); LYMPH % 51 % (24-48); MEAN CORPUSCULAR HEMOGLOBIN 26 pg (25-35); MEAN CORPUSCULAR HGB CONC 32 g/dL (31-37); MEAN CORPUSCULAR VOLUME 82 fL (79-100); MONO # 0.2 x10^3/uL (0.0-1.1); MONO % 6 % (0-9); NEUT # 1.2 x10^3uL (1.8-7.7); NEUT % 42 % (31-73); PLATELET COUNT 240 x10^3/uL (140-400); RED BLOOD COUNT 3.34 x10^6/uL (3.50-5.40); RED CELL DISTRIBUTION WIDTH 20.1 % (11.5-14.5); WHITE BLOOD COUNT 2.9 x10^3/uL (4.0-11.0)
[2020-04-13 08:16] LABS: ALBUMIN 2.6 g/dL (3.4-5.0); CALCIUM 9.3 mg/dL (8.5-10.1); CREATININE 1.4 mg/dL (0.6-1.0); DIRECT BILIRUBIN 0.1 mg/dL (0.0-0.2); GFR 46.6; POTASSIUM 4.4 mmol/L (3.5-5.1); TOTAL BILIRUBIN 0.2 mg/dL (0.2-1.0); TOTAL PROTEIN 8.4 g/dL (6.4-8.2)
[2020-04-13 08:56] LABS: PLT ESTIMATE ADEQUATE (ADEQUATE)
[2020-04-13 08:57] LABS: OVALOCYTES FEW
[2020-04-13 08:58] LABS: ANISOCYTOSIS PRESENT
== END | disposition home or self-care (01) ==
LOC: LAB 07:38
PROVIDERS: ATTEND Physician Assistant
DX: C50.211 Malignant neoplasm of upper-inner quadrant of right female breast (principal)
CPT/HCPCS: 36415; 80048; 80076; 83615; 85025; 86300